=== PATIENT | female | born 1975 | race Caucasian/White ===

== ENCOUNTER 2020-04-08 15:15 | Emergency (ER) | payer OTHER ==
[~2020-04-08] VITALS: Ht 162.6 cm; Wt 74.8 kg
[2020-04-08 15:15] VITALS: BP 139/85
== END 2020-04-08 17:44 | disposition home or self-care (01) ==
LOC: ER 15:15
DX: U07.1 COVID-19 (principal); J03.90 Acute tonsillitis, unspecified
CPT/HCPCS: 36415; 71045; 87426